=== PATIENT | female | born 1960 | race Caucasian/White ===

== ENCOUNTER 2023-10-01 13:49 | Emergency (ER) | payer OTHER, SELFPAY ==
[2023-10-01 14:08] VITALS: BP 139/79; PULSE 75; RESP 20; TEMP 36.9; O2SAT 100
--- NOTE | 2023-10-01 14:32 | ED.EAR ---
HPI - Ear Problem General Chief complaint: Upper Respiratory Infection Stated complaint: Ear, Neck, Shoulder pain History of Present Illness HPI Narrative: PATIENT PRESENTS WITH LEFT EAR PAIN THAT RADIATES DOWN HER NECK AND SHOULDER. PATIENT ALSO HAS SOME NASAL CONGESTION DENIES ANY SHORTNESS OF BREATH NO CHEST PAIN PATIENT DENIES ANY NECK STIFFNESS NO FEVER. DENIES ANY INJURY TO HER NECK. Related Data Home Medications Medication Instructions Recorded Confirmed losartan 50 mg tablet 50 mg PO DAILY 10/01/23 10/01/23 Allergies Allergy/AdvReac Type Severity Reaction Status Date / Time prednisone AdvReac Anxiety Verified 10/01/23 14:51 Review of Systems Review of Systems: CONSTITUTIONAL: DENIES CHILLS, OR SWEATS. REPORTS FEVER AND GENERALIZED BODY ACHES EYES: DENIES VISUAL CHANGES, REDNESS, OR DISCHARGE. ENT: DENIES OTALGIA. REPORTS NASAL CONGESTION RUNNY NOSE AND SORE THROAT CARDIOVASCULAR: DENIES CHEST PAIN, PALPITATIONS, OR EDEMA. RESPIRATORY: DENIES DYSPNEA. REPORTS OCCASIONAL COUGH GASTROINTESTINAL: DENIES ABDOMINAL PAIN, NAUSEA, VOMITING, OR DIARRHEA. GENITOURINARY: DENIES DYSURIA OR HEMATURIA. SKIN: DENIES RASH OR ITCHING. MUSCULOSKELETAL: DENIES BACK PAIN, JOINT PAIN, OR MYALGIA. REPORTS GENERALIZED BODY ACHES NEUROLOGIC: DENIES HEADACHE, NUMBNESS, OR WEAKNESS. PSYCHIATRIC: DENIES ANXIETY OR DEPRESSION. PMFSH Comments AT TIME OF SIGNATURE, AGREE WITH NURSING PAST MEDICAL, SURGICAL, SOCIAL AND FAMILY HISTORY. THERE IS NO RELEVANT FAMILY HISTORY PERTINENT TO THE PRESENTING COMPLAINT Exam Narrative: THE PATIENT IS A WELL-DEVELOPED, WELL-NOURISHED IN NO ACUTE DISTRESS. SKIN: SKIN IS WARM AND DRY WITHOUT ERYTHEMA, SWELLING OR EXUDATE. THERE IS GOOD TURGOR. NO TENTING. HEAD: ATRAUMATIC. NORMOCEPHALIC. NO TEMPORAL OR SCALP TENDERNESS. EYES: MOIST AND BRIGHT. SCLERA AND CONJUNCTIVAE NORMAL. NO DISCHARGE. PERRLA. EXTRAOCULAR MOTIONS INTACT. GROSS VISUAL ACUITY INTACT. EARS: PINNA IS NORMAL SHAPE AND CONTOUR. CLEAR EXTERNAL AUDITORY CANALS. TM PEARLY KUHN WITH GOOD CONE OF LIGHT, NO ERYTHEMA OR SUPPURATION. BILATERAL CERUMEN NOTED NO GROSS HEARING DEFICIT. NOSE: PINK, MOIST MUCOSA WITH GOOD AIR MOVEMENT. CLEAR RHINORRHEA WITHOUT NASAL FLARING. SEPTUM MIDLINE. MOUTH: MOIST MUCOUS MEMBRANES. 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 WITHOUT EXUDATE OR ULCERATION.. UVULA MIDLINE. NORMAL MOVEMENT OF SOFT PALATE. NECK: SUPPLE AND NONTENDER WITH FULL RANGE OF MOTION WITHOUT DISCOMFORT. NO MENINGEAL SIGNS. LUNGS: EQUAL AND BILATERAL BREATH SOUNDS WITHOUT WHEEZES, RALES OR RHONCHI. CHEST: THE CHEST WALL IS WITHOUT RETRACTIONS OR USE OF ACCESSORY MUSCLES. HEART: HAS A REGULAR RATE AND RHYTHM WITHOUT MURMUR, GALLOPS, CLICK OR RUB. ABDOMEN: SOFT, NONTENDER WITH POSITIVE ACTIVE BOWEL SOUNDS. NO REBOUND TENDERNESS. EXTREMITIES: WITHOUT CYANOSIS, CLUBBING OR EDEMA. EQUAL 2+ DISTAL PULSES AND 2 SECOND CAPILLARY REFILL NOTED. NEUROLOGIC: ALERT, ACTIVE, . THE PATIENT MOVES ALL EXTREMITIES WITH NORMAL MUSCLE STRENGTH. NORMAL MUSCLE TONE IS NOTED. NORMAL COORDINATION IS NOTED. NO FOCAL NEUROLOGICAL FINDINGS NOTED. HENMT: Ears: Abnormal EAC present erythema and EAC tenderness on the left Neck: Neck: normal visual inspection, no lymphadenopathy and no meningeal signs Course Course Level of Care: Express Care Visit Vital Signs Vital signs: Vital Signs Temperature 36.9 C 10/01/23 14:08 Pulse Rate 75 10/01/23 14:08 Respiratory Rate 20 10/01/23 14:08 Blood Pressure 139/79 10/01/23 14:08 Pulse Oximetry 100 10/01/23 14:08 Oxygen Delivery Room Air 10/01/23 14:08 Temperature 36.9 C 10/01/23 14:08 Pulse Rate 75 10/01/23 14:08 Respiratory Rate 20 10/01/23 14:08 Blood Pressure 139/79 10/01/23 14:08 Pulse Oximetry 100 10/01/23 14:08 Oxygen Delivery Room Air 10/01/23 14:08 PLEASE MALLORY SCHEDULE A FOLLOWUP VISIT WITH YOUR PERSONAL PHYSICIAN FOR F
== END 2023-10-01 15:05 | disposition home or self-care (01) ==
PROVIDERS: Emergency Provider Nurse Practitioner Family; PCP Family Medicine
DX: H60.92 Unspecified otitis externa, left ear (principal); S16.1XXA Strain of muscle, fascia and tendon at neck level, initial encounter; H69.82 Other specified disorders of Eustachian tube, left ear; T14.90XA Injury, unspecified, initial encounter
CPT/HCPCS: 99203; G0463